=== PATIENT | male | born 1960 | race Caucasian/White ===

== ENCOUNTER 2017-06-05 12:27 | Emergency (ER) | payer OTHER ==
[2017-06-05 13:06] VITALS: BP 146/101
--- NOTE | 2017-06-05 13:35 | UC ---
Respiratory Complaint HPI - HPI Summary HPI Summary: Cough, nasal congestion, chest tightness/trouble breathing starting 4 days ago. Denies fevers or wheezing. - History of Current Complaint Chief Complaint: UCRespiratory Stated Complaint: COUGH SOB Time Seen by Provider: 06/05/17 13:17 Hx Obtained From: Patient Onset/Duration: Gradual Onset, Lasting Days Timing: Constant Severity Initially: Mild Severity Currently: Moderate Character: Cough: Nonproductive Aggravating Factors: Deep Breaths, Recumbent Position Alleviating Factors: Upright Position, Spontaneous Resolution Associated Signs And Symptoms: Positive: URI, Nasal Congestion. Negative: Fever , Chills - Allergies/Home Medications Allergies/Adverse Reactions: Allergies Allergy/AdvReac Type Severity Reaction Status Date / Time Seasonal/Environmental Allergy Congestion Uncoded 12/04/15 14:20 Allergies PMH/Surg Hx/FS Hx/Imm Hx Respiratory History: COPD - possible? - Surgical History Surgical History: Yes Surgery Procedure, Year, and Place: tonsillectomy - Family History Known Family History: Positive: Hypertension - Social History Occupation: Employed Full-time Lives: With Family Alcohol Use: Occasionally Substance Use Type: None, Prescribed Substance Use Comment - Amount & Last Used: oxy for chronic neck and back pain Smoking Status (MU): Former Smoker Amount Used/How Often: quit in 2011 Household Exposure Type: Cigarettes - Immunization History Most Recent Influenza Vaccination: seasona Review of Systems Constitutional: Negative Skin: Negative Eyes: Negative ENT: Nasal Discharge Respiratory: Shortness Of Breath, Cough Cardiovascular: Negative Gastrointestinal: Negative Genitourinary: Negative Motor: Negative Neurovascular: Negative Musculoskeletal: Negative Neurological: Negative Psychological: Negative All Other Systems Reviewed And Are Negative: Yes Physical Exam Triage Information Reviewed: Yes Appearance: Well-Appearing, No Pain Distress, Well-Nourished Vital Signs: Initial Vital Signs Temp 98.3 F 06/05/17 13:02 Pulse 78 06/05/17 13:02 Resp 20 06/05/17 13:02 BP 146/101 06/05/17 13:02 Pulse Ox 100 06/05/17 13:02 Vital Signs Reviewed: Yes Eye Exam: Normal Eyes: Positive: Conjunctiva Clear ENT: Positive: Hearing grossly normal, Pharynx normal, Nasal congestion, TMs normal Dental Exam: Normal Neck exam: Normal Neck: Positive: Supple, Nontender, No Lymphadenopathy Respiratory: Positive: Chest non-tender, Lungs clear, Normal breath sounds, Accessory muscle use - increased WOB Cardiovascular Exam: Normal Cardiovascular: Positive: RRR, No Murmur Musculoskeletal Exam: Normal Neurological Exam: Normal Psychological Exam: Normal Skin Exam: Normal UC Diagnostic Evaluation - Laboratory O2 Sat by Pulse Oximetry: 100 Respiratory Course/Dx - Differential Dx/Diagnosis Provider Diagnoses: URI, likely viral. bronchospasm Discharge - Discharge Plan Condition: Stable Disposition: HOME Prescriptions: Albuterol HFA INHALER* [Ventolin HFA Inhaler*] 1 - 2 puff INH Q4H PRN #1 mdi PRN Reason: wheeze, cough Patient Education Materials: Upper Respiratory Infection (ED), Bronchospasm (ED ) Forms: *Work Release Referrals: Johny Walker MD [Primary Care Provider] - If Needed Additional Instructions: Call or return if you develop increasing fever, shortness of breath, chest pain , bloody sputum, or otherwise worsen. If you have not improved at all after several days, contact your primary care physician or return here.
== END 2017-06-05 13:35 | disposition home or self-care (01) ==
LOC: UCEAST 12:27
DX: J06.9 Acute upper respiratory infection, unspecified (principal); J98.01 Acute bronchospasm; Z87.891 Personal history of nicotine dependence
CPT/HCPCS: 99212; G0463

== ENCOUNTER 2017-06-09 14:09 | Emergency (ER) | payer SELFPAY ==
--- NOTE | 2017-06-09 16:00 | RAD ---
INDICATION: Short of breath COMPARISON: None TECHNIQUE: PA and lateral dual-energy views were obtained. FINDINGS: Bones/Soft Tissues: There are no acute bony findings. Cardiomediastinal: The cardiomediastinal silhouette is normal. Lungs: There are no infiltrates. Pleura: There are no pleural effusions. Other: None IMPRESSION: NO ACTIVE DISEASE.
[2017-06-09 16:28] VITALS: BP 124/68
--- NOTE | 2017-06-09 17:09 | UC ---
Bryanna Trujillo Edward, scribed for Logan Zavala MD on 06/09/17 at 1437 . Respiratory Complaint HPI - HPI Summary HPI Summary: 56 y/o male presents to [facility] c/o fatigue and SOB that started one week ago. Patient states that the fatigue is aggravated by eating and the SOB is alleviated slightly by albuterol inhaler. Associated sx: diarrhea (week and a half ago), CP described as pressure, chronic neck pain, nasal congestion, rhinorrhea (clear discharge) and pain in the calves starting yesterday. Denies wheezing, sinus pressure now, fevers, chills, ABD pain, burning with urination, and blood in stool. Employers found black mold in the environment today. Patient was seen at the [facility] at 06/05/17 and dx with viral URI. PMHx bronchitis, arthritis. No PMHx cardiac disease. No FHx DM. Former smoker. - History of Current Complaint Chief Complaint: UCRespiratory Stated Complaint: FATIGUE,DIFFICULTY BREATHING Time Seen by Provider: 06/09/17 14:34 Hx Obtained From: Patient Onset/Duration: Gradual Onset - Fatigue starting one week ago Severity Initially: Mild Severity Currently: Moderate Associated Signs And Symptoms: Positive: Nasal Congestion, Sinus Discomfort. Negative: Fever, Chills, Wheezing - Allergies/Home Medications Allergies/Adverse Reactions: Allergies Allergy/AdvReac Type Severity Reaction Status Date / Time Seasonal/Environmental Allergy Congestion Uncoded 12/04/15 14:20 Allergies PMH/Surg Hx/FS Hx/Imm Hx - Additional Past Medical History Additional PMH: Positive: arthritis Previously Healthy: No Respiratory History: Bronchitis - Surgical History Surgical History: Yes Surgery Procedure, Year, and Place: tonsillectomy - Family History Known Family History: Positive: Hypertension Negative: Diabetes - Social History Occupation: Employed Full-time Lives: With Family Alcohol Use: Rare Substance Use Type: None, Prescribed Substance Use Comment - Amount & Last Used: oxy for chronic neck and back pain Smoking Status (MU): Former Smoker Amount Used/How Often: quit in 2011 Household Exposure Type: Cigarettes - Immunization History Most Recent Influenza Vaccination: seasona Review of Systems Constitutional: Fatigue, Other - No fever or chills Skin: Negative Eyes: Negative ENT: Nasal Discharge, Other - No sinus pressure now Respiratory: Shortness Of Breath, Other - No wheezing Cardiovascular: Chest Pain Gastrointestinal: Diarrhea, Other - No ABD pain, no blood in stool Genitourinary: Negative Motor: Negative Neurovascular: Negative Musculoskeletal: Arthralgia - Chronic neck pain secondary to arthritis, Myalgia - Pain in calves starting yesterday Neurological: Negative Psychological: Negative All Other Systems Reviewed And Are Negative: Yes Physical Exam Triage Information Reviewed: Yes Appearance: Well-Appearing, No Pain Distress Vital Signs: Initial Vital Signs Temp 97.1 F 06/09/17 16:20 Pulse 79 06/09/17 16:20 Resp 16 06/09/17 16:20 BP 124/68 06/09/17 16:20 Pulse Ox 98 06/09/17 16:20 Vital Signs Reviewed: Yes Eye Exam: Normal ENT: Positive: Normal ENT inspection Neck: Positive: Supple, Nontender Respiratory: Positive: Chest non-tender, Lungs clear, Normal breath sounds, No respiratory distress Cardiovascular: Positive: RRR Abdomen Description: Positive: Nontender, Soft Bowel Sounds: Positive: Present Musculoskeletal Exam: Normal Musculoskeletal: Positive: Strength Intact Neurological Exam: Normal Neurological: Positive: Alert Psychological: Positive: Age Appropriate Behavior Skin Exam: Normal UC Diagnostic Evaluation - Radiology Xray Interpretation: No Acute Changes - CHEST XRAY - no active disease Radiology Interpretation Completed By: Radiologist Respiratory Course/Dx - Course Course Of Treatment: Medications reviewed upon visit to [facility]. DISCUUSED RESULTS OF CXR. DISCUSSED FURTHER WORK UP WITH LAB WORK AND LE U/S. PATIENT DECLINED FURTHER WORK UP HERE IN THE CLINIC. HE WISHES TO F/U WITH HIS PMD. WILL RETURN IF WORSE. RX PREDNISONE 40MG PO QD FOR 5 DAYS. - Differential Dx/Diagnosis Provider Diagnoses: DYSPNEA/FATIGUE WITH RECENT EXPOSURE AT WORK TO MOLD. Discharge - Discharge Plan Condition: Stable Disposition: HOME Prescriptions: predniSONE TAB* [Deltasone TAB*] 40 mg PO DAILY #10 tab Patient Education Materials: Dyspnea (ED), Fatigue (ED) Referrals: Johny Walker MD [Primary Care Provider] - Additional Instructions: FOLLOW UP WITH YOUR DOCTOR. GET RECHECKED FOR ANY WORSENING OF YOUR CONDITION OR QUESTIONS OR CONCERNS. The documentation as recorded by the Bryanna cruz Edward accurately reflects the service I personally performed and the decisions made by me, Logan Zavala MD.
== END 2017-06-09 16:24 | disposition home or self-care (01) ==
LOC: UCEAST 14:09
DX: R06.00 Dyspnea, unspecified (principal); R53.83 Other fatigue; M19.90 Unspecified osteoarthritis, unspecified site; J40 Bronchitis, not specified as acute or chronic; Z77.120 Contact with and (suspected) exposure to mold (toxic); Z87.891 Personal history of nicotine dependence
CPT/HCPCS: 71020; 99212; G0463

== ENCOUNTER 2018-03-12 12:41 | Emergency (ER) | payer OTHER ==
[2018-03-12 13:32] VITALS: BP 131/93
--- NOTE | 2018-03-12 14:56 | UC ---
UC General HPI - HPI Summary HPI Summary: Patient presents with an unremarkable past medical history. He presents today with complaints of 3 days nausea, vomiting. He states the vomiting has resolved , but remains nauseous. He states he is tolerating liquids today, but remains too weak to go back to work yet. He states that if he get up and tries to roller picker a little around the house he becomes so tired he has to go back and lay down. Denies abdominal pain, dysuria, or hematuria. - History of Current Complaint Chief Complaint: UCRespiratory Stated Complaint: VOMITING, FEVER, AND ACHES Time Seen by Provider: 03/12/18 14:39 Hx Obtained From: Patient Onset/Duration: Lasting Days Timing: Constant Onset Severity: Moderate Current Severity: Moderate Pain Intensity: 6 Associated Signs & Symptoms: Positive: Nausea, Vomiting - Allergy/Home Medications Allergies/Adverse Reactions: Allergies Allergy/AdvReac Type Severity Reaction Status Date / Time Seasonal/Environmental Allergy Congestion Uncoded 03/12/18 13:32 Allergies Home Medications: Home Medications Ibuprofen [Goodsense Ibuprofen] 400 mg PO Q6H PRN 03/12/18 [History Confirmed ] PMH/Surg Hx/FS Hx/Imm Hx Previously Healthy: Yes - Surgical History Surgical History: Yes Surgery Procedure, Year, and Place: tonsillectomy - Family History Known Family History: Positive: Hypertension Negative: Diabetes - Social History Occupation: Employed Full-time Lives: Alone Alcohol Use: Rare Substance Use Type: None Substance Use Comment - Amount & Last Used: oxy for chronic neck and back pain Smoking Status (MU): Former Smoker Amount Used/How Often: quit in 2011 Household Exposure Type: Cigarettes - Immunization History Most Recent Influenza Vaccination: seasona Review of Systems Constitutional: Fatigue Skin: Negative Eyes: Negative ENT: Negative Respiratory: Negative Cardiovascular: Negative Gastrointestinal: Vomiting, Nausea Genitourinary: Negative Motor: Negative Neurovascular: Negative Musculoskeletal: Negative Neurological: Negative Psychological: Negative Is Patient Immunocompromised?: No All Other Systems Reviewed And Are Negative: Yes Physical Exam Triage Information Reviewed: Yes Appearance: Well-Appearing Vital Signs: Initial Vital Signs Temp 97.5 F 03/12/18 13:27 Pulse 73 03/12/18 13:27 Resp 16 03/12/18 13:27 BP 131/93 03/12/18 13:27 Pulse Ox 100 04/15/18 13:27 Vital Signs Reviewed: Yes Eye Exam: Normal ENT Exam: Normal Neck exam: Normal Respiratory Exam: Normal Cardiovascular Exam: Normal Abdominal Exam: Normal Skin Exam: Normal Course/Dx - Course Course Of Treatment: Patient presents with viral illness, he is currently tolerating oral liquids, but he remains weak. I RX zofran and have taken him out of work for 2 days, as he works in seafood process worker. I do feel he will recover, but need more time. He is not having any abdominal pain, and I do not feel any other work-up is indicated at this time. I did tell him that if his symptoms do not completly resolve within 48 hours he would need to follow up with his PCP. He verbalized understanding of and was in agreement with the discharge plan. - Differential Dx - Multi-Symptom Differential Diagnoses: Other - viral syndrome nausea vomiting Provider Diagnoses: viral syndrome. nausea. vomiting Discharge - Sign-Out/Discharge Documenting (check all that apply): Discharge - Discharge Plan Condition: Stable Disposition: HOME Prescriptions: Ondansetron TAB* [Zofran 4 MG Tab*] 4 mg PO Q6H PRN #14 tab PRN Reason: Nausea Patient Education Materials: Viral Syndrome (ED), Acute Nausea and Vomiting (ED ) Forms: *Work Release Referrals: Johny Walker MD [Primary Care Provider] - - Billing Disposition and Condition Condition: STABLE Disposition: HOME
== END 2018-03-12 14:58 | disposition home or self-care (01) ==
LOC: UCEAST 12:41
DX: B34.9 Viral infection, unspecified (principal); R11.2 Nausea with vomiting, unspecified; Z87.891 Personal history of nicotine dependence
CPT/HCPCS: 99212; G0463

== ENCOUNTER 2018-04-27 12:25 | Emergency (ER) | payer OTHER ==
--- NOTE | 2018-04-27 14:05 | RAD ---
INDICATION: Hemoptysis COMPARISON: None TECHNIQUE: PA and lateral dual-energy views were obtained. FINDINGS: Bones/Soft Tissues: There are no acute bony findings. Cardiomediastinal: The cardiomediastinal silhouette is normal. Lungs: There are no infiltrates. Pleura: There are no pleural effusions. Other: None IMPRESSION: NEGATIVE EXAMINATION.
[2018-04-27 16:14] LABS: ABS Basophils 0.1 10^3/ul (0-0.2); ABS Eosinophils 0.3 10^3/ul (0-0.6); ABS Lymphocytes 2.2 10^3/ul (1.0-4.8); ABS Monocytes 0.6 10^3/ul (0-0.8); ABS Neutrophils 3.4 10^3/ul (1.5-7.7); ABS Nucleated RBC 0 10^3/ul; Hematocrit 40 % (42-52); Hemoglobin 13.4 g/dl (14.0-18.0); Lymphocyte % 33.2 % (25-47); Mean Corpuscular HGB Conc 34 g/dl (31-36); Mean Corpuscular Hemoglobin 29 pg (27-31); Mean Corpuscular Volume 86 fL (80-94); Mean Platelet Volume 7.9 um3 (7.4-10.4); Nucleated Red Blood Cells % 0.1; Platelet Count 236 10^3/ul (150-450); Red Blood Count 4.67 10^6/ul (4.0-5.4); Red Cell Distribution Width 14 % (10.5-15); White Blood Count 6.5 10^3/ul (3.5-10.8)
[2018-04-27 16:20] LABS: INR 0.95 (0.77-1.02)
[2018-04-27 16:34] LABS: EGFR Non-African American 87.6 (>60)
[2018-04-27 17:09] LABS: Urine Appearance Clear; Urine Blood Negative (Negative); Urine Color Straw; Urine Ketones Negative (Negative); Urine Protein Negative (Negative); Urine Specific Gravity 1.005 (1.010-1.030); Urine Urobilinogen Negative (Negative)
[2018-04-27 17:46] VITALS: BP 115/76
--- NOTE | 2018-04-27 19:08 | ED ---
Gama Trujillo Elizabeth, scribed for Ronald Reyes MD on 04/27/18 at 1539 . HPI Cardiac - HPI Summary HPI Summary: This patient is a 57 year old M presenting to [facility] with a chief complaint of hemoptysis since 4 days ago. The patient notes that he has only been noticing the hemoptysis in the morning after waking up. The patient rates the pain 0/10 in severity. Symptoms aggravated by nothing. Symptoms alleviated by nothing. Patient reports night sweats. Patient denies N/V, melena, abd pain, recent weight loss, epistaxis, sore throat, chest pain. Patient denies travelling outside of the or to [facility] recently. - History of Current Complaint Chief Complaint: EDBleedingDisorder Stated Complaint: COUGHING UP BLOOD Time Seen by Provider: 04/27/18 15:29 Hx Obtained From: Patient Onset/Duration: Started Days Ago - 4 days ago, Atraumatic, Still Present Timing: Intermittent Initial Severity: Mild Current Severity: Mild Pain Intensity: 0 Pain Scale Used: 0-10 Numeric Aggravating Factor(s): Nothing Alleviating Factor(s): Nothing Associated Signs and Symptoms: Positive: Hemoptysis - Allergy/Home Medications Allergies/Adverse Reactions: Allergies Allergy/AdvReac Type Severity Reaction Status Date / Time Seasonal/Environmental Allergy Congestion Uncoded 03/12/18 13:32 Allergies PMH/Surg Hx/FS Hx/Imm Hx Endocrine/Hematology History: Denies: Hx Diabetes, Hx Thyroid Disease Cardiovascular History: Denies: Hx Hypertension, Hx Pacemaker/ICD Respiratory History: Denies: Hx Asthma - ALLERGIES, Hx Chronic Obstructive Pulmonary Disease (COPD ) GI History: Denies: Hx Ulcer History: Denies: Hx Renal Disease Sensory History: Denies: Hx Hearing Aid Psychiatric History: Denies: Hx Panic Disorder - Surgical History Surgery Procedure, Year, and Place: tonsillectomy Infectious Disease History: No Infectious Disease History: Denies: Hx Clostridium Difficile, Hx Hepatitis, Hx Human Immunodeficiency Virus (HIV), Hx of Known/Suspected MRSA, Hx Shingles, Hx Tuberculosis, Hx Known/ Suspected VRE, Hx Known/Suspected VRSA, History Other Infectious Disease, Traveled Outside the [place] in Last 30 Days - Family History Known Family History: Positive: Hypertension Negative: Diabetes - Social History Alcohol Use: Rare Substance Use Type: Reports: None Substance Use Comment - Amount & Last Used: oxy for chronic neck and back pain Hx Tobacco Use: No Smoking Status (MU): Former Smoker Amount Used/How Often: quit in 2011 Review of Systems Negative: Epistaxis, Sore Throat Negative: Chest Pain Positive: Cough - hemoptysis Positive: Other - NEGATIVE MELENA. Negative: Abdominal Pain, Vomiting, Nausea All Other Systems Reviewed And Are Negative: Yes Physical Exam - Summary Physical Exam Summary: VITAL SIGNS: Reviewed. GENERAL: Patient is a well-developed and nourished MALE who is lying comfortable in the stretcher. Patient is not in any acute respiratory distress. HEAD AND FACE: No signs of trauma. No ecchymosis, hematomas or skull depressions. No sinus tenderness. EYES: PERRLA, EOMI x 2, No injected conjunctiva, no nystagmus. EARS: Hearing grossly intact. Ear canals and tympanic membranes are within normal limits. MOUTH: Oropharynx within normal limits. NECK: Supple, trachea is midline, no adenopathy, no JVD, no carotid bruit, no c- spine tenderness, neck with full ROM. CHEST: Symmetric, no tenderness at palpation LUNGS: Clear to auscultation bilaterally. No wheezing or crackles. CVS: Regular rate and rhythm, S1 and S2 present, no murmurs or gallops appreciated. ABDOMEN: Soft, non-tender. No signs of distention. No rebound no guarding, and no masses palpated. Bowel sounds are normal. EXTREMITIES: FROM in all major joints, no edema, no cyanosis or clubbing. NEURO: Alert and oriented x 3. No acute neurological deficits. Speech is normal and follows commands. SKIN: Dry and warm Triage Information Reviewed: Yes Vital Signs On Initial Exam: Initial Vitals Temp Pulse Resp BP Pulse Ox 97.4 F 58 16 130/94 98 04/27/18 12:41 04/27/18 12:41 04/27/18 12:41 04/27/18 12:41 04/27/18 12:41 Vital Signs Reviewed: Yes Diagnostics - Vital Signs Vital Signs Temp Pulse Resp BP Pulse Ox 04/27/18 14:51 50 16 131/89 99 04/27/18 12:41 97.4 F 58 16 130/94 98 - Laboratory Lab Results: Lab Results 04/27/18 04/27/18 04/27/18 Range/Units 15:59 15:59 16:00 WBC 6.5 (3.5-10.8) 10^3/ul RBC 4.67 (4.0-5.4) 10^6/ul Hgb 13.4 L (14.0-18.0) g/dl Hct 40 L (42-52) % MCV 86 (80-94) fL MCH 29 (27-31) pg MCHC 34 (31-36) g/dl RDW 14 (10.5-15) % Plt Count 236 (150-450) 10^3/ul MPV 7.9 (7.4-10.4) um3 Neut % (Auto) 52.2 (38-83) % Lymph % (Auto) 33.2 (25-47) % Foster % (Auto) 8.6 H (0-7) % Eos % (Auto) 5.0 (0-6) % Baso % (Auto) 1.0 (0-2) % Absolute Neuts (auto) 3.4 (1.5-7.7) 10^3/ul Absolute Lymphs (auto) 2.2 (1.0-4.8) 10^3/ul Absolute Monos (auto) 0.6 (0-0.8) 10^3/ul Absolute Eos (auto) 0.3 (0-0.6) 10^3/ul Absolute Basos (auto) 0.1 (0-0.2) 10^3/ul Absolute Nucleated RBC 0 10^3/ul Nucleated RBC % 0.1 INR (Anticoag Therapy) 0.95 (0.77-1.02) APTT 35.8 (26.0-36.3) seconds Sodium 139 (139-145) mmol/L Potassium 3.6 (3.5-5.0) mmol/L Chloride 105 (101-111) mmol/L Carbon Dioxide 27 (22-32) mmol/L Anion Gap 7 (2-11) mmol/L BUN 14 (6-24) mg/dL Creatinine 0.90 (0.67-1.17) mg/dL Est GFR ( Amer) 112.7 (>60) Est GFR (Non-Af Amer) 87.6 (>60) BUN/Creatinine Ratio 15.6 (8-20) Glucose 71 (70-100) mg/dL Calcium 8.7 (8.6-10.3) mg/dL Total Bilirubin 0.30 (0.2-1.0) mg/dL AST 19 (13-39) U/L ALT 20 (7-52) U/L Alkaline Phosphatase 67 (34-104) U/L Total Creatine Kinase 130 (10-223) U/L Total Protein 6.6 (6.4-8.9) g/dL Albumin 4.0 (3.2-5.2) g/dL Globulin 2.6 (2-4) g/dL Albumin/Globulin Ratio 1.5 (1-3) Urine Color Urine Appearance Urine pH (5-9) Ur Specific [place] (1.010-1.030) Urine Protein (Negative) Urine Ketones (Negative) Urine Blood (Negative) Urine Nitrate (Negative) Urine Bilirubin (Negative) Urine Urobilinogen (Negative) Ur Leukocyte Esterase (Negative) Urine Glucose (Negative) 04/27/18 Range/Units 17:01 WBC (3.5-10.8) 10^3/ul RBC (4.0-5.4) 10^6/ul Hgb (14.0-18.0) g/dl Hct (42-52) % MCV (80-94) fL MCH (27-31) pg MCHC (31-36) g/dl RDW (10.5-15) % Plt Count (150-450) 10^3/ul MPV (7.4-10.4) um3 Neut % (Auto) (38-83) % Lymph % (Auto) (25-47) % Foster % (Auto) (0-7) % Eos % (Auto) (0-6) % Baso % (Auto) (0-2) % Absolute Neuts (auto) (1.5-7.7) 10^3/ul Absolute Lymphs (auto) (1.0-4.8) 10^3/ul Absolute Monos (auto) (0-0.8) 10^3/ul Absolute Eos (auto) (0-0.6) 10^3/ul Absolute Basos (auto) (0-0.2) 10^3/ul Absolute Nucleated RBC 10^3/ul Nucleated RBC % INR (Anticoag Therapy) (0.77-1.02) APTT (26.0-36.3) seconds Sodium (139-145) mmol/L Potassium (3.5-5.0) mmol/L Chloride (101-111) mmol/L Carbon Dioxide (22-32) mmol/L Anion Gap (2-11) mmol/L BUN (6-24) mg/dL Creatinine (0.67-1.17) mg/dL Est GFR ( Amer) (>60) Est GFR (Non-Af Amer) (>60) BUN/Creatinine Ratio (8-20) Glucose (70-100) mg/dL Calcium (8.6-10.3) mg/dL Total Bilirubin (0.2-1.0) mg/dL AST (13-39) U/L ALT (7-52) U/L Alkaline Phosphatase (34-104) U/L Total Creatine Kinase (10-223) U/L Total Protein (6.4-8.9) g/dL Albumin (3.2-5.2) g/dL Globulin (2-4) g/dL Albumin/Globulin Ratio (1-3) Urine Color Straw Urine Appearance Clear Urine pH 6.0 (5-9) Ur Specific [place] 1.005 L (1.010-1.030) Urine Protein Negative (Negative) Urine Ketones Negative (Negative) Urine Blood Negative (Negative) Urine Nitrate Negative (Negative) Urine Bilirubin Negative (Negative) Urine Urobilinogen Negative (Negative) Ur Leukocyte Esterase Negative (Negative) Urine Glucose Negative (Negative) Result Diagrams: 04/27/18 15:59 04/27/18 16:00 Lab Statement: Any lab studies that have been ordered have been reviewed, and results considered in the medical decision making process. - Radiology CXR Xray Interpretation: No Acute Changes - IMPRESSION: NEGATIVE EXAMINATION. Dr. Reyes has reviewed this report. Radiology Interpretation Completed By: Radiologist - EKG 16:36 Cardiac Rate: NL - at 52 BPM EKG Rhythm: Sinus Rhythm EKG Interpretation: NSR, normal axis, no ST elevation Disposition - Course Assessment/Plan: This patient is a 57-year-old male who presents to the emergency department with a chief complaint of having hemoptysis. The patient reports that in the last 4 days every time he wakes up he coughs up sputum with blood. Patient denies any night sweats, denies any weight loss, denies any history of recent traveling outside the country. Patient denies any fever or chills. Denies any chest pain shortness of breath palpitations. Blood test results without any significant abnormality except for hemoglobin 13.4 and hematocrit of 40. Urinalysis negative for UTI. Chest x-ray impression: negative examination. Since the patient is hemodynamically stable, he has no coughing at this time, and his hemoglobin and hematocrit stable the patient will be discharged home with follow-up with PCP. I discussed all the findings and test results with the patient. Patient was instructed to return to the emergency room immediately if any of the symptoms return or worsens. Plan of care was discussed with the patient and understands and agrees. All questions were answered at patient satisfaction. There were no further complaints or concerns. Lung exam before discharge: CTA B/L. Good air exchange. No wheezing or crackles heard. CVS: S1 and S2 present. No murmurs appreciated. Patient is alert and oriented x 3. Patient is hemodynamically stable. Patient will be discharged home with follow up PCP in the next 2-3 days - Diagnoses Provider Diagnoses: Hemoptysis Discharge - Sign-Out/Discharge Documenting (check all that apply): Discharge/Admit/Transfer - Discharge Plan Condition: Stable Disposition: HOME Patient Education Materials: Hemoptysis (ED) Forms: *Work Release Referrals: Johny Walker MD [Primary Care Provider] - 2 Days Additional Instructions: Follow up with primary care physician in 2-3 days if symptoms persist. Return to emergency department with any new or worsening symptoms. - Billing Disposition and Condition Condition: STABLE Disposition: HOME The documentation as recorded by the Gama cruz Elizabeth accurately reflects the service I personally performed and the decisions made by me, Ronald Reyes MD.
== END 2018-04-27 17:48 | disposition home or self-care (01) ==
LOC: ED 12:25
DX: R04.2 Hemoptysis (principal); Z87.891 Personal history of nicotine dependence
CPT/HCPCS: 36415; 71046; 80053; 81003; 82550; 85025; 85610; 85730; 93005; 99283

== ENCOUNTER 2019-04-19 09:34 | Emergency (ER) | payer OTHER ==
--- NOTE | 2019-04-19 10:09 | UC ---
Throat Pain/Nasal Jose Manuel HPI - HPI Summary HPI Summary: 58 yo male presents with sinus pain/pressure/congestion and frontal headache. He was seen a couple of days ago and tells me he was dx'd with a URI and prescribed amoxicillin. He has taken this for 2 days as well as OTC flonase and allergy medications. He has had no relief. States today that amoxicillin doesn' t usually work for him and that augmentin usually helps. Denies fever, chills, cough, rash. - History of Current Complaint Chief Complaint: UCRespiratory Stated Complaint: RESP COMPLAINT Time Seen by Provider: 04/19/19 10:08 Hx Obtained From: Patient Onset/Duration: Gradual Onset Severity: Severe Pain Intensity: 8 Pain Scale Used: 0-10 Numeric - Allergies/Home Medications Allergies/Adverse Reactions: Allergies Allergy/AdvReac Type Severity Reaction Status Date / Time Seasonal/Environmental Allergy Congestion Uncoded 04/19/19 09:46 Allergies PMH/Surg Hx/FS Hx/Imm Hx - Additional Past Medical History Additional PMH: Chronic pain Respiratory History: Asthma - Surgical History Surgical History: Yes Surgery Procedure, Year, and Place: tonsillectomy - Family History Known Family History: Positive: Hypertension, Non-Contributory Negative: Diabetes - Social History Lives: With Family Alcohol Use: Rare Substance Use Type: None Substance Use Comment - Amount & Last Used: oxy for chronic neck and back pain Smoking Status (MU): Former Smoker Amount Used/How Often: quit in 2011 Household Exposure Type: Cigarettes - Immunization History Most Recent Influenza Vaccination: 2014/2015 seasona Review of Systems All Other Systems Reviewed And Are Negative: Yes Constitutional: Positive: Negative Skin: Positive: Negative Eyes: Positive: Negative ENT: Positive: Nasal Discharge, Sinus Congestion, Sinus Pain/Tenderness Respiratory: Positive: Negative Cardiovascular: Positive: Negative Gastrointestinal: Positive: Negative Neurological: Positive: Negative Psychological: Positive: Negative Physical Exam - Summary Physical Exam Summary: GENERAL: NAD. WDWN. No pain distress. SKIN: No rashes, sores, lesions, or open wounds. HEENT: Head: AT/NC Eyes: EOM intact. Conjunctiva clear without inflammation or discharge. Ears: Hearing grossly normal. TMs intact, no bulging, erythema, or edema. Nose: Nasal mucosa mildly swollen and erythematous without discharge. TTP maxillary and frontal sinus. Positive post nasal drip Throat: Posterior oropharynx without exudates, erythema, or tonsillar enlargement. Uvula midline. NECK: Supple. Nontender. No lymphadenopathy. CHEST: CTAB. No r/r/w. No accessory muscle use. Breathing comfortably and in no distress. CV: RRR. Without m/r/g. Pulses intact. NEURO: Alert. PSYCH: Age appropriate behavior. Triage Information Reviewed: Yes Vital Signs: Initial Vital Signs Temp 98.8 F 04/19/19 09:44 Pulse 66 04/19/19 09:44 Resp 16 04/19/19 09:44 BP 132/91 04/19/19 09:44 Pulse Ox 99 04/19/19 09:44 Vital Signs Reviewed: Yes Throat Pain/Nasal Course/Dx - Course Course Of Treatment: Sinusitis. Will have him stop amox and start augmentin - Differential Dx/Diagnosis Provider Diagnosis: Sinusitis Discharge - Sign-Out/Discharge Documenting (check all that apply): Patient Departure All imaging exams completed and their final reports reviewed: No Studies - Discharge Plan Condition: Stable Disposition: HOME Prescriptions: Amoxicillin/Clavulanate TAB* [Augmentin TAB 875*] 875 mg PO BID #14 tab Patient Education Materials: Sinusitis (ED) Forms: *Work Release Referrals: Johny Walker MD [Primary Care Provider] - Additional Instructions: If you develop a fever, shortness of breath, chest pain, new or worsening symptoms - please call your PCP or go to the ED immediately. Your blood pressure was slightly elevated at todays visit. Please see your primary provider within 4 weeks for recheck and re-evaluation STOP taking the amoxicillin and START the augmentin Continue your over the counter medications - Billing Disposition and Condition Condition: STABLE Disposition: Home
[2019-04-19 10:20] VITALS: BP 132/91
== END 2019-04-19 10:40 | disposition home or self-care (01) ==
LOC: UCEAST 09:34
DX: J32.9 Chronic sinusitis, unspecified (principal); Z87.891 Personal history of nicotine dependence; Z79.899 Other long term (current) drug therapy
CPT/HCPCS: 99212; G0463